=== PATIENT | female | born 1985 | race African-American/Black ===

== ENCOUNTER 2018-05-15 08:06 | Emergency (ER) | payer OTHER ==
[~2018-05-15] VITALS: Ht 165.1 cm; Wt 60.0 kg
[2018-05-15] MEDS ORDERED: ACETAMINOPHEN 325MG TABLET PO ONE (10:45)
[2018-05-15] MEDS ORDERED: KETOROLAC 15MG/ML VIAL IM ONE (12:15)
[2018-05-15 12:44] VITALS: BP 121/71
== END 2018-05-15 12:51 | disposition home or self-care (01) ==
LOC: ER 08:06
DX: S19.9XXA Unspecified injury of neck, initial encounter (principal); M79.10 Myalgia, unspecified site; V43.52XA Car driver injured in collision with other type car in traffic accident, initial encounter; Y93.89 Activity, other specified; Y92.488 Other paved roadways as the place of occurrence of the external cause
CPT/HCPCS: 72125; 81025; 96372; 99284; J1885